=== PATIENT | female | born 1955 | race Caucasian/White ===

== ENCOUNTER 2017-11-16 12:29 | Emergency (ER) | payer BC ==
[2017-11-16] MEDS ORDERED: LIDOCAINE 1% W/EPI 1:100,000 MDV 50 ML VIAL ONE (12:35)
[2017-11-16] MEDS ORDERED: ONDANSETRON 4 MG/2 ML VIAL ONE (12:39)
[2017-11-16] MEDS ORDERED: NA CHLORIDE 0.9% 1,000 ML ONE (12:40)
[2017-11-16 12:56] LABS: Absolute Lymphocytes (CBC) 2.3 K/uL (0.7-4.9); Absolute Monocytes 0.6 K/uL (0.1-1.3); Absolute Neutrophil 5.2 K/uL (1.8-8.0); Basophils % 0.5 % (0-1.3); Eosinophils % 1.5 % (0-4.4); Hematocrit 38.8 % (36.0-45.0); Lymphocytes % 27.8 % (15.3-44.8); MCH 32.1 pg (27.0-35.0); MCV 93.9 fL (80-100); MPV 7.4 fL (7.6-11.3); Monocytes % 7.5 % (3.3-12.3); RBC Red Blood Cell Count 4.13 M/uL (3.86-4.86)
[2017-11-16 13:08] LABS: Potassium 3.3 mEq/L (3.6-5.0)
[2017-11-16 13:11] LABS: Albumin 4.6 g/dL (3.2-5.5); Bilirubin Total 0.8 mg/dL (0.3-1.2); Protein, Total 7.6 g/dL (6.0-8.3)
--- NOTE | 2017-11-16 13:46 | ER ---
Nurse's Notes [facility] Name: Elizabeth Gonzalez Age: 62 yrs Sex: Female : 1955 Arrival Date: 11/16/2017 Time: 12:30 Bed 3 Private MD: Diagnosis: Laceration without foreign body of other part of head-frontal, scalp Presentation: 11/16 12:32 Presenting complaint: Patient states: " My was up on a ladder with a piece of ph plywood, the wind caught it and it fell on my head." Laceration noted to forehead and scalp w/ moderate amount of bleeding, pt denies LOC but reports "seeing stars", reports dizziness,denies N/V. 12:32 Care prior to arrival: None. Mechanism of Injury: Laceration sustained at home, while hb doing yard work, from plywood Injury was accidental. Trauma event details: Injury occurred in the [facility], Injury occurred: at home. Injury occurred: November 16, 2017. 12:32 Method Of Arrival: Ambulatory hb 12:32 Acuity: KANE 2 hb 12:52 Transition of care: patient was not received from another setting of care. Onset of sv symptoms was November 16, 2017. Initial Sepsis Screen: Does the patient meet any 2 criteria? No. Patient's initial sepsis screen is negative. Does the patient have a suspected source of infection? No. Patient's initial sepsis screen is negative. Trauma Activation: Alert Physician: ED Physician; Name: Dr. Vallejo; Notified At: 12:32; Arrived At: 12:33 Physician: General Surgeon; Name: ; Notified At: 12:32; Arrived At: Physician: Radiology; Name: ; Notified At: 12:32; Arrived At: 12:33 Physician: Respiratory; Name: ; Notified At: 12:32; Arrived At: Physician: Lab; Name: ; Notified At: 12:32; Arrived At: Historical: - Allergies: 12:52 Codeine; sv 12:52 Erythromycin; sv 12:52 FLU VACCINE; sv - PSHx: 12:52 Hysterectomy; sv - Family history:: not pertinent. Screenin:51 Abuse screen: Denies threats or abuse. Denies injuries from another. Tuberculosis hb screening: No symptoms or risk factors identified. Primary Survey: 12:33 A: Airway: patent, No supplemental oxygen in use on arrival. Oral cavity: clear, gag hb reflex present, Trachea midline. Breathing/Chest: Respiratory pattern: regular, Respiratory effort: spontaneous, unlabored, Breath sounds: clear, bilaterally. Chest inspection: symmetrical rise and fall of the chest. Circulation: Pulses: palpable . Skin color: pink, pale, Skin temperature: warm, diaphoretic. Disability Alert. Assessment: 12:40 Reassessment: Pt stated that she felt like she was going to pass out. Pt placed in sv Trendelenburg and Dr Vallejo informed. NS 1L bolus started on pt. 12:45 Reassessment: Pt stated that her nausea was improving and she didn't feel like she was sv going to pass out. Patient states feeling better. Patient states symptoms have improved. 12:53 Reassessment: Dr Vallejo at bedside. sv 13:00 Reassessment: Patient appears in no apparent distress at this time. Patient and/or sv family updated on plan of care and expected duration. Pain level reassessed. Patient is alert, oriented x 3, equal unlabored respirations, skin warm/dry/pink. Patient states feeling better. Patient states symptoms have improved. 14:27 Reassessment: Patient appears in no apparent distress at this time. Patient and/or sv family updated on plan of care and expected duration. Pain level reassessed. Patient is alert, oriented x 3, equal unlabored respirations, skin warm/dry/pink. Patient denies pain at this time. Patient states feeling better. Patient states symptoms have improved. Vital Signs: 12:32 BP 153 / 77; Pulse 69; Resp 18; Temp 98; Pulse Ox 100% on R/A; Pain 5/10; hb 12:40 BP 77 / 47; Pulse 61; hb 12:50 BP 132 / 67; Pulse 67; Resp 15; Pulse Ox 100% on R/A; hb Mike Coma Score: 12:33 Eye Response: spontaneous(4). Verbal Response: oriented(5). Motor Response: obeys hb commands(6). Total: 15. 12:42 Eye Response: spontaneous(4). Verbal Response: oriented(5). Motor Response: obeys isela commands(6). Total: 15. Trauma Score (Adult): 12:33 Eye Response: spontaneous(1); Verbal Response: oriented(1); Motor Response: obeys hb commands(2); Systolic BP: > 89 mm Hg(4); Respiratory Rate: 10 to 29 per min(4); Mike Score: 15; Trauma Score: 12 ED Course: 12:30 Patient arrived in ED. sb2 12:33 Patient has correct armband on for positive identification. Bed in low position. Call hb light in reach. Side rails up X 1. shell molder on. Pulse ox on. NIBP on. 12:35 Arm band placed on right wrist. sv 12:35 Initial lab(s) drawn, by me, sent to lab. Inserted saline lock: 18 gauge in right sv antecubital area, using aseptic technique. Blood collected. Flushed right antecubital with 5 ml normal saline. 12:38 Godfrey Vallejo MD is Attending Physician. isela 12:47 Kirsten Worrell, RN is Primary Nurse. hb 12:49 Triage completed. hb 12:51 Patient maintains SpO2 saturation greater than 95% on room air. hb 13:00 Assist provider with laceration repair on top of head that was between 2.6 to 7.5 cm sv using sutures. Set up tray. Performed by Godfrey Vallejo MD Dressed with Neosporin, Patient tolerated well. 13:26 EKG done, by mail technician. reviewed by Godfrey Vallejo MD. sm3 13:37 CT Head C Spine In Process Unspecified. EDMS 13:46 CT completed. Patient tolerated procedure well. Patient moved back from CT. sj 14:00 Wound care: was triple antibiotic ointment applied. sv 14:21 IV discontinued, intact, bleeding controlled, No redness/swelling at site. Pressure sv dressing applied. Administered Medications: 12:40 Drug: NS 0.9% 1000 ml Route: IV; Rate: 1 bolus; Site: right antecubital; sv 13:30 Follow up: Response: No adverse reaction; IV Status: Completed infusion; IV Intake: sv 1000ml 12:45 Drug: Zofran 4 mg Route: IVP; Site: right antecubital; hb 13:00 Follow up: Response: No adverse reaction sv 13:00 Drug: Lidocaine-Epinephrine -1%: (1:100,000) 10 ml {Note: given to Dr Vallejo for sv procedure.} Volume: 20 ml; Route: Infiltration; 14:00 Drug: KeFLEX 500 mg Route: PO; sv 14:02 Follow up: Response: No adverse reaction sv 14:00 Drug: Neosporin Ointment 1 application Route: Topical; Site: affected area; sv 14:00 Drug: Potassium Chloride 20 mEq Route: PO; sv 14:02 Follow up: Response: No adverse reaction sv 14:01 Drug: Ancef 1 grams {Note: given IVP per pharmacy instructions.} Route: IVPB; Site: sv right antecubital; 14:01 Drug: Tetanus-Diphtheria Toxoid Adult 0.5 ml {Psychology Assistant: [employer]. Exp: sv 02/04/2020. Lot #: [id number]. } Route: IM; Site: right deltoid; 14:02 Follow up: Response: No adverse reaction sv Intake: 12:52 PO: 0ml; Total: 0ml. sv 13:30 IV: 1000ml; Total: 1000ml. sv Output: 12:52 Urine: 0ml; Total: 0ml. sv Outcome: 13:46 Discharge ordered by MD. weiss 14:27 Discharged to home ambulatory, with family. sv 14:27 Condition: stable 14:27 Condition: improved 14:27 Discharge instructions given to patient, family, Instructed on discharge instructions, the need for admit, medication usage, wound care, Demonstrated understanding of instructions, follow-up care, medications, wound care, Prescriptions given X 2. 14:27 Patient left the ED. sv Signatures: Dispatcher [employer] Franchesca Chacon RN RN sv Anderson, Corey, MD MD cha Jones, Susan sj Hall, Patricia, RN RN ph Baxter, Heather, RN RN hb Billeau, Sheri sb2 Shagufta Norris3 Corrections: (The following items were deleted from the chart) 12:51 12:33 Inserted hb hb
--- NOTE | 2017-11-16 13:46 | EDPHYS ---
Physician Documentation [facility] Name: Elizabeth Gonzalez Age: 62 yrs Sex: Female : 1955 Arrival Date: 11/16/2017 Time: 12:30 Bed 3 Private MD: ED Physician Godfrye Vallejo HPI: 11/16 12:42 This 62 yrs old Female presents to ER via Unassigned with complaints of Head isela Injury Without LOC-Adult. 12:42 The patient or guardian reports a laceration, 8 cm(s). The complaints affect the top of isela head. Context of injury: The problem was sustained at home. Onset: The symptoms/episode began/occurred just prior to arrival. Associated signs and symptoms: Loss of consciousness: This patient did not experience any loss of consciousness. Severity of symptoms: At their worst the symptoms were moderate, in the emergency department the symptoms are unchanged. The patient has not experienced similar symptoms in the past. Historical: - Allergies: 12:52 Codeine; sv 12:52 Erythromycin; sv 12:52 FLU VACCINE; sv - PSHx: 12:52 Hysterectomy; sv - Family history:: not pertinent. ROS: 12:42 Constitutional: Negative for fever, chills, and weight loss, Eyes: Negative for injury, isela pain, redness, and discharge, ENT: Negative for injury, pain, and discharge, Neck: Negative for injury, pain, and swelling, Cardiovascular: Negative for chest pain, palpitations, and edema, Respiratory: Negative for shortness of breath, cough, wheezing, and pleuritic chest pain, Abdomen/GI: Negative for abdominal pain, nausea, vomiting, diarrhea, and constipation, Back: Negative for injury and pain, : Negative for injury, bleeding, discharge, and swelling, MS/Extremity: Negative for injury and deformity, Neuro: Negative for headache, weakness, numbness, tingling, and seizure, Psych: Negative for depression, anxiety, suicide ideation, homicidal ideation, and hallucinations, Allergy/Immunology: Negative for hives, rash, and allergies, Endocrine: Negative for neck swelling, polydipsia, polyuria, polyphagia, and marked weight changes, Hematologic/Lymphatic: Negative for swollen nodes, abnormal bleeding, and unusual bruising. 12:42 Skin: Positive for laceration(s), of the . Exam: 12:42 Constitutional: This is a well developed, well nourished patient who is awake, alert, isela and in no acute distress. Eyes: Pupils equal round and reactive to light, extra-ocular motions intact. Lids and lashes normal. Conjunctiva and sclera are non-icteric and not injected. Cornea within normal limits. Periorbital areas with no swelling, redness, or edema. ENT: Nares patent. No nasal discharge, no septal abnormalities noted. Tympanic membranes are normal and external auditory canals are clear. Oropharynx with no redness, swelling, or masses, exudates, or evidence of obstruction, uvula midline. Mucous membranes moist. Neck: Trachea midline, no thyromegaly or masses palpated, and no cervical lymphadenopathy. Supple, full range of motion without nuchal rigidity, or vertebral point tenderness. No Meningismus. Chest/axilla: Normal chest wall appearance and motion. Nontender with no deformity. No lesions are appreciated. Cardiovascular: Regular rate and rhythm with a normal S1 and S2. No gallops, murmurs, or rubs. Normal PMI, no JVD. No pulse deficits. Respiratory: Lungs have equal breath sounds bilaterally, clear to auscultation and percussion. No rales, rhonchi or wheezes noted. No increased work of breathing, no retractions or nasal flaring. Abdomen/GI: Soft, non-tender, with normal bowel sounds. No distension or tympany. No guarding or rebound. No evidence of tenderness throughout. Back: No spinal tenderness. No costovertebral tenderness. Full range of motion. Female : Normal external genitalia. Skin: Warm, dry with normal turgor. Normal color with no rashes, no lesions, and no evidence of cellulitis. MS/ Extremity: Pulses equal, no cyanosis. Neurovascular intact. Full, normal range of motion. Neuro: Awake and alert, GCS 15, oriented to person, place, time, and situation. Cranial nerves II-XII grossly intact. Motor strength 5/5 in all extremities. Sensory grossly intact. Cerebellar exam normal. Normal gait. Psych: Awake, alert, with orientation to person, place and time. Behavior, mood, and affect are within normal limits. 12:42 Head/face: Noted is a laceration(s), that is deep, 8 cm(s). Vital Signs: 12:32 BP 153 / 77; Pulse 69; Resp 18; Temp 98; Pulse Ox 100% on R/A; Pain 5/10; hb 12:40 BP 77 / 47; Pulse 61; hb 12:50 BP 132 / 67; Pulse 67; Resp 15; Pulse Ox 100% on R/A; hb Mike Coma Score: 12:33 Eye Response: spontaneous(4). Verbal Response: oriented(5). Motor Response: obeys hb commands(6). Total: 15. 12:42 Eye Response: spontaneous(4). Verbal Response: oriented(5). Motor Response: obeys isela commands(6). Total: 15. Trauma Score (Adult): 12:33 Eye Response: spontaneous(1); Verbal Response: oriented(1); Motor Response: obeys hb commands(2); Systolic BP: > 89 mm Hg(4); Respiratory Rate: 10 to 29 per min(4); Mike Score: 15; Trauma Score: 12 Laceration: 13:13 Wound Repair of 8cm ( 3.1in ) subcutaneous laceration to top of head. Irregularly isela shaped.. Distal neuro/vascular/tendon intact. Anesthesia: Local anesthetic administered with 10 mls of 1% lidocaine w/ Epi. Wound prep: Moderate cleansing by me. Skin closed with 5 5-0 Prolene using interrupted sutures and sterile technique. Dressed with Neosporin. Patient tolerated well. MDM: 12:38 Patient medically screened. [facility] 12:42 Data reviewed: vital signs, nurses notes, lab test result(s), EKG, radiologic studies, [facility] CT scan. 11/16 12:42 Order name: CBC with Diff; Complete Time: 13:12 [facility] 11/16 12:42 Order name: Comprehensive Metabolic Panel; Complete Time: 13:12 [facility] 11/16 12:42 Order name: CT Head C Spine; Complete Time: 14:02 [facility] 11/16 12:42 Order name: EKG; Complete Time: 12:42 [facility] 11/16 12:42 Order name: EKG - Nurse/Tech; Complete Time: 13:40 [facility] 11/16 12:42 Order name: Dressing - Wound; Complete Time: 12:45 [facility] 11/16 12:42 Order name: Gloves, Sterile; Complete Time: 12:46 [facility] 11/16 12:42 Order name: Setup Suture Tray; Complete Time: 12:46 isela Administered Medications: 12:40 Drug: NS 0.9% 1000 ml Route: IV; Rate: 1 bolus; Site: right antecubital; sv 13:30 Follow up: Response: No adverse reaction; IV Status: Completed infusion; IV Intake: sv 1000ml 12:45 Drug: Zofran 4 mg Route: IVP; Site: right antecubital; hb 13:00 Follow up: Response: No adverse reaction sv 13:00 Drug: Lidocaine-Epinephrine -1%: (1:100,000) 10 ml {Note: given to Dr Vallejo for sv procedure.} Volume: 20 ml; Route: Infiltration; 14:00 Drug: KeFLEX 500 mg Route: PO; sv 14:02 Follow up: Response: No adverse reaction sv 14:00 Drug: Neosporin Ointment 1 application Route: Topical; Site: affected area; sv 14:00 Drug: Potassium Chloride 20 mEq Route: PO; sv 14:02 Follow up: Response: No adverse reaction sv 14:01 Drug: Ancef 1 grams {Note: given IVP per pharmacy instructions.} Route: IVPB; Site: sv right antecubital; 14:01 Drug: Tetanus-Diphtheria Toxoid Adult 0.5 ml {House Servant: [employer]. Exp: sv 02/04/2020. Lot #: [id number]. } Route: IM; Site: right deltoid; 14:02 Follow up: Response: No adverse reaction sv Disposition: 11/16/17 13:46 Discharged to Home. Impression: Laceration without foreign body of other part of head - frontal, scalp. - Condition is Stable. - Discharge Instructions: Facial or Scalp Contusion, Head Injury, Adult, Facial Laceration, Facial Laceration, [id number], Head Injury, Adult, [id number]. - Prescriptions for Ibuprofen 600 mg Oral Tablet - take 1 tablet by ORAL route every 6 hours As needed take with food; 20 tablet. Keflex 500 mg Oral Capsule - take 1 capsule by ORAL route every 6 hours for 10 days; 40 capsule. - Medication Reconciliation Form, Thank You Letter, Antibiotic Education, Prescription Opioid Use form. - Work release form (11/16/17 17:32). bd - Follow up: Private Physician; When: 5 - 6 days; Reason: Recheck today's complaints, Continuance of care, Re-evaluation by your physician. - Problem is new. - Symptoms have improved. Signatures: Dispatcher [employer] Franchesca Chacon, CHRIS RN Godfrey Rabago MD MD cha Baxter, Heather, RN RN Anju Downing Corrections: (The following items were deleted from the chart) 14:27 13:46 11/16/2017 13:46 Discharged to Home. Impression: Laceration without foreign body sv of other part of head - frontal, scalp. Condition is Stable. Discharge Instructions: Facial or Scalp Contusion, Head Injury, Adult, Facial Laceration, Facial Laceration, [id number], Head Injury, Adult, [id number]. Prescriptions for Ibuprofen 600 mg Oral Tablet - take 1 tablet by ORAL route every 6 hours As needed take with food; 20 tablet, Keflex 500 mg Oral Capsule - take 1 capsule by ORAL route every 6 hours for 10 days; 40 capsule. and Forms are Medication Reconciliation Form, Thank You Letter, Antibiotic Education, Prescription Opioid Use. Follow up: Private Physician; When: 5 - 6 days; Reason: Recheck today's complaints, Continuance of care, Re-evaluation by your physician. Problem is new. Symptoms have improved. isela
[2017-11-16] MEDS ORDERED: TETANUS & DIPHTHERIA TOX,ADULT 0.5 ML VIAL ONE (13:49)
[2017-11-16] MEDS ORDERED: POTASSIUM CL SA 10 MEQ TAB PO ONE (13:49)
[2017-11-16] MEDS ORDERED: CEPHALEXIN 250 MG CAP ONE (13:49)
[2017-11-16] MEDS ORDERED: CEFAZOLIN/SWI 1gm 1 GM/10 ML SYR ONE (13:50)
--- NOTE | 2017-11-16 13:55 | RAD REPORT ---
EXAM DESCRIPTION: CT - [id number] - 11/16/2017 1:37 pm CLINICAL HISTORY: Trauma, head and neck injury. COMPARISON: None. TECHNIQUE: Axial 5 mm thick images of the head were obtained. Axial 2 mm thick images of the cervical spine were obtained with sagittal and coronal reconstruction images generated and reviewed. All CT scans are performed using dose optimization technique as appropriate and may include automated exposure control or mA/KV adjustment according to patient size. FINDINGS: CT HEAD WITHOUT CONTRAST: No acute hemorrhage, hydrocephalus or extra-axial collection is identified.No areas of brain edema or midline shift. The paranasal sinuses and mastoids are clear.The calvarium is intact. CT CERVICAL SPINE WITHOUT CONTRAST: No fracture or subluxation.Moderate midcervical degenerative changes.No prevertebral soft tissues swe lling is identified. IMPRESSION: No acute intracranial or cervical spine findings.
--- NOTE | 2017-11-16 15:26 | EKG ---
Test Date: 2017-11-16 Test Time: 13:14:21 Legislative Director: [place] MEASUREMENT RESULTS: Intervals: Rate: 56 NE: 178 QRSD: 76 QT: 424 QTc: 409 [place]: P: 12 NE: 178 QRS: -8 T: 18 INTERPRETIVE STATEMENTS: Sinus bradycardia Otherwise normal ECG No previous ECG available for comparison Electronically Signed On 11-16-17 15:25:28 CDT by Jovany Carrizales
== END 2017-11-16 14:27 | disposition home or self-care (01) ==
LOC: ER 12:29
PROC: 0JQ00ZZ Repair Scalp Subcutaneous Tissue and Fascia, Open Approach (ICD-10-PCS; principal; 2017-11-16)
DX: S01.01XA Laceration without foreign body of scalp, initial encounter (principal); W22.8XXA Striking against or struck by other objects, initial encounter; Y93.89 Activity, other specified; Y92.009 Unspecified place in unspecified non-institutional (private) residence as the place of occurrence of the external cause; Z23 Encounter for immunization; Z88.3 Allergy status to other anti-infective agents; Z88.5 Allergy status to narcotic agent; Z88.7 Allergy status to serum and vaccine
CPT/HCPCS: 36415; 70450; 72125; 80053; 85025; 90714; 93005; 96361; 96374; 96375; 99285; J0690; J2405; J7030

== ENCOUNTER 2021-12-14 18:39 | Emergency (ER) | payer BC ==
[2021-12-14 19:20] LABS: Absolute Lymphocytes (CBC) 0.9 K/uL (0.7-4.9); Hematocrit 38.5 % (36.0-45.0); Lymphocytes % 29.1 % (15.3-44.8); MPV 7.3 fL (7.6-11.3); RBC Red Blood Cell Count 4.18 M/uL (3.86-4.86)
[2021-12-14 19:32] LABS: Potassium 3.2 mmol/L (3.5-5.1)
[2021-12-14] MEDS ORDERED: ONDANSETRON 4 MG/2 ML VIAL ONE (19:47)
[2021-12-14] MEDS ORDERED: POTASSIUM CL SA 10 MEQ TAB PO ONE (19:47)
[2021-12-14] MEDS ORDERED: NA CHLORIDE 0.9% 1,000 ML ONE (19:47)
--- NOTE | 2021-12-14 20:33 | ER ---
Nurse's Notes [facility] Name: Elizabeth Gonzalez Age: 66 yrs Sex: Female : 1955 Arrival Date: 12/14/2021 Time: 18:40 Bed 20 Private MD: Diagnosis: Coronavirus infection, unspecified;Nausea with vomiting, unspecified Presentation: 12/14 19:14 Chief complaint: Patient states: I have had N/V/D and CARRERA for the past 5 days. I was jb4 diagnosed with covid on wednesday. Coronavirus screen: Client reports previous positive COVID test result. Ebola Screen: No symptoms or risks identified at this time. Initial Sepsis Screen: Does the patient meet any 2 criteria? No. Patient's initial sepsis screen is negative. Does the patient have a suspected source of infection? No. Patient's initial sepsis screen is negative. Risk Assessment: Do you want to hurt yourself or someone else? Patient reports no desire to harm self or others. Onset of symptoms was December 09, 2021. Transition of care: patient was not received from another setting of care. 19:14 Method Of Arrival: Ambulatory 4 19:14 Acuity: KANE 3 jb4 Historical: - Allergies: 19:16 Codeine; jb4 19:16 Erythromycin; jb4 19:16 FLU VACCINE; jb4 - Home Meds: 19:16 Prozac Oral [Active]; jb4 - PMHx: 19:16 depression; jb4 - Immunization history:: Adult Immunizations up to date. - Social history:: Smoking status: unknown. Vital Signs: 19:14 BP 161 / 78; Pulse 58; Resp 18; Temp 97.9; Pulse Ox 99% on R/A; Weight 61.23 kg (R); jb4 Height 5 ft. 5 in. (165.10 cm); 19:14 Body Mass Index 22.46 (61.23 kg, 165.10 cm) jb4 ED Course: 18:40 Patient arrived in ED. jj6 18:43 [facility]C [facility]. kb 18:43 Van Rascon MD is Attending Physician. kb 19:08 Wilfredo Macario, RN is Primary Nurse. 4 19:14 CBC with Diff Sent. 5 19:14 Basic Metabolic Panel Sent. mh5 19:16 Triage completed. jb4 19:16 Arm band placed on right wrist. 4 19:41 Initial lab(s) drawn, by me, sent to lab. Inserted saline lock: 20 gauge in right [facility] antecubital area, using aseptic technique. Blood collected. 19:41 Patient has correct armband on for positive identification. Bed in low position. Call [facility] light in reach. Adult w/ patient. Warm blanket given. Pulse ox on. NIBP on. Administered Medications: 19:49 Drug: NS 0.9% 1000 ml Route: IV; Rate: 1000 ml; Site: right antecubital; jd3 19:49 Drug: Zofran (Ondansetron) 4 mg Route: IVP; Site: right antecubital; jd3 19:49 Drug: Potassium Chloride 40 mEq Route: PO; jd3 Outcome: 20:32 Discharge ordered by MD. kb 21:16 Patient left the ED. ke1 Signatures: Grace Frazier, CASING GRADER-C CASING GRADER-CkWilfredo Salas, RN RN jb4 Karis Montague [facility] Gage Maria RN RN jd3 Celina Turner6 Douglas Jordan RN RN ke1
--- NOTE | 2021-12-14 20:33 | EDPHYS ---
Physician Documentation [facility] Name: Elizabeth Gonzalez Age: 66 yrs Sex: Female : 1955 Arrival Date: 12/14/2021 Time: 18:40 Bed 20 Private MD: ED Physician Van Racson HPI: 12/14 20:37 This 66 yrs old Female presents to ER via Ambulatory with complaints of kb Nausea/Vomiting, COVID +, PT concerned about dehydration. 20:37 The patient presents to the emergency department with nausea, vomiting, diarrhea. kb Onset: The symptoms/episode began/occurred 5 day(s) ago. Possible causes: covid. The symptoms are aggravated by nothing. The symptoms are alleviated by nothing. Associated signs and symptoms: Pertinent positives: diarrhea, nausea, vomiting. Severity of symptoms: At their worst the symptoms were mild moderate in the emergency department the symptoms are unchanged. The patient has not experienced similar symptoms in the past. The patient has been recently seen by a physician:. Pt reports headache, n/v/d for 5 days. Was diagnosed with covid 4 days ago. came in because she is concerned she is dehydrated from not being able to tolerate po intake. Historical: - Allergies: 19:16 Codeine; jb4 19:16 Erythromycin; jb4 19:16 FLU VACCINE; jb4 - Home Meds: 19:16 Prozac Oral [Active]; jb4 - PMHx: 19:16 depression; jb4 - Immunization history:: Adult Immunizations up to date. - Social history:: Smoking status: unknown. ROS: 20:38 Constitutional: Negative for fever, chills, and weight loss. kb 20:38 Abdomen/GI: Positive for nausea, vomiting, and diarrhea, Negative for abdominal pain. 20:38 Neuro: Positive for headache. 20:38 All other systems are negative. Exam: 20:38 Constitutional: This is a well developed, well nourished patient who is awake, alert, kb and in no acute distress. Head/Face: Normocephalic, atraumatic. ENT: Moist Mucous membranes Cardiovascular: Regular rate and rhythm with a normal S1 and S2. No gallops, murmurs, or rubs. No pulse deficits. Respiratory: Respirations even and unlabored. No increased work of breathing. Talking in full sentences Abdomen/GI: Soft, non-tender. No distention Skin: Warm, dry with normal turgor. Normal color. MS/ Extremity: Pulses equal, no cyanosis. Neurovascular intact. Full, normal range of motion. Neuro: Awake and alert, GCS 15, oriented to person, place, time, and situation. Moves all extremities. Normal gait. Psych: Awake, alert, with orientation to person, place and time. Behavior, mood, and affect are within normal limits. Vital Signs: 19:14 BP 161 / 78; Pulse 58; Resp 18; Temp 97.9; Pulse Ox 99% on R/A; Weight 61.23 kg (R); jb4 Height 5 ft. 5 in. (165.10 cm); 19:14 Body Mass Index 22.46 (61.23 kg, 165.10 cm) jb4 MDM: 18:53 Patient medically screened. kb 20:38 Data reviewed: vital signs, nurses notes. Data interpreted: Pulse oximetry: on room air kb is 99 %. Interpretation: normal. Counseling: I had a detailed discussion with the patient and/or guardian regarding: the historical points, exam findings, and any diagnostic results supporting the discharge/admit diagnosis, lab results, the need for outpatient follow up, a family practitioner, to return to the emergency department if symptoms worsen or persist or if there are any questions or concerns that arise at home. 12/14 18:50 Order name: CBC with Diff; Complete Time: 19:32 kb 12/14 18:50 Order name: Basic Metabolic Panel; Complete Time: 19:32 kb 12/14 18:50 Order name: IV Start; Complete Time: 19:14 kb 12/14 19:50 Order name: PO challenge; Complete Time: 19:59 kb Administered Medications: 19:49 Drug: NS 0.9% 1000 ml Route: IV; Rate: 1000 ml; Site: right antecubital; jd3 19:49 Drug: Zofran (Ondansetron) 4 mg Route: IVP; Site: right antecubital; jd3 19:49 Drug: Potassium Chloride 40 mEq Route: PO; jd3 Disposition Summary: 12/14/21 20:32 Discharge Ordered Location: Home kb Condition: Stable kb Diagnosis - Coronavirus infection, unspecified kb - Nausea with vomiting, unspecified kb Followup: kb - With: Emergency Department - When: As needed - Reason: Worsening of condition Followup: kb - With: Private Physician - When: 2 - 3 days - Reason: Recheck today's complaints, Continuance of care, Re-evaluation by your physician Discharge Instructions: - Discharge Summary Sheet kb - Viral Respiratory Infection, [id number] kb - COVID-19 kb Forms: - Medication Reconciliation Form kb - Thank You Letter kb - Antibiotic Education kb - Prescription Opioid Use kb Prescriptions: - Zofran 4 mg Oral Tablet - take 1 tablet by ORAL route every 6 hours As needed; 20 tablet; Refills: 0, kb Product Selection Permitted Signatures: Dispatcher [employer] EDMS Grace Frazier, ALLEY WORKER-C ALLEY WORKER-Wilfredo Cook, RN RN jb4 Gage Maria RN RN jd3
[2021-12-14 21:34] VITALS: BP 161/78; TEMP 97.9; O2SAT 99
== END 2021-12-14 21:16 | disposition home or self-care (01) ==
LOC: ER 18:39
DX: U07.1 COVID-19 (principal); F32.A Depression, unspecified; Z88.3 Allergy status to other anti-infective agents; Z88.5 Allergy status to narcotic agent; Z88.7 Allergy status to serum and vaccine
CPT/HCPCS: 85025; 80048; 36415; 96374; 99284; J7030; J2405